=== PATIENT | male | born 2000 | race Two or more races ===

== ENCOUNTER 2021-03-25 19:27 | Emergency (ER) | payer OTHER ==
[~2021-03-25] VITALS: Ht 175.3 cm; Wt 56.2 kg
[2021-03-25] MEDS ORDERED: OSEL75CA PO (21:25)
[2021-03-25] MEDS ORDERED: TUSNEL LIQUID178 ML PO (21:25)
== END 2021-03-25 21:57 | disposition home or self-care (01) ==
LOC: ER 19:27
DX: J09.X2 Influenza due to identified novel influenza A virus with other respiratory manifestations (principal); B34.9 Viral infection, unspecified; Z20.822 Contact with and (suspected) exposure to COVID-19